=== PATIENT | female | born 2005 | race Caucasian/White ===

== ENCOUNTER 2025-04-26 18:01 | Emergency (ER) | payer SELFPAY ==
[2025-04-27] MEDS ORDERED: CEFP200T13 PO (19:53)
== END 2025-04-26 18:59 | disposition left against medical advice (07) ==
LOC: ER 18:02
DX: R10.9 Unspecified abdominal pain (principal); Z91.040 Latex allergy status; Z88.0 Allergy status to penicillin; Z53.21 Procedure and treatment not carried out due to patient leaving prior to being seen by health care provider

== ENCOUNTER 2025-04-27 18:16 | Emergency (ER) | payer MEDICAID ==
[~2025-04-27] VITALS: Ht 167.6 cm; Wt 60.0 kg
[2025-04-27 18:32] VITALS: TEMP 97.7
[2025-04-27 19:15] LABS: MEAN PLATELET VOLUME 7.7 FL (7.4-10.4); RED CELL DISTRIBUTION WIDTH 13.4 % (11.5-14.5)
[2025-04-27 19:27] LABS: CREATININE 0.60 MG/DL (0.40-0.90); TOTAL CARBON DIOXIDE 30.2 MMOL/L (24-32); eCRCL 139 ML/MIN; eGFR > 90 ML/MIN
--- NOTE | 2025-04-27 19:28 | Physician Documentation ---
History of Present Illness General Chief Complaint: Flank Pain Stated Complaint: R SIDE PAIN Time Seen by MD: 19:28 Mode of Arrival: POV History of Present Illness Initial Comments Patient is a 19-year-old female complains of right flank pain intermittently over last week, the patient was seen in urgent care and at [facility] and urgent care told her she had a urinary tract infection but does not prescribed her any antibiotics. The patient states the pain is sharp and intermittent she has a kidney stone she states this feels little bit different than kidney stones she also has had some urinary symptoms to include frequency. Patient denies any fevers or chills. The patient denies any nausea or vomiting. Medication Reconciliation Allergies: Coded Allergies: amoxicillin (Verified Allergy, Intermediate, Hives, 04/27/25) latex (Verified Allergy, Intermediate, Hives, 04/27/25) Scheduled Cefpodoxime Proxetil (Vantin), 1 TAB PO Q12H Review of Systems All Other Systems at this time: Reviewed and Negative Physical Exam Physical Exam Vital Signs: Temperature: 97.7, Source: Temporal, Heart Rate: 72, Respiratory Rate: 16, BP: 106/68, Pulse Oximetry: 100, Weight: 60.000 Physical Exam VITALS: Reviewed and as above. GENERAL: Alert, no apparent distress. HEENT: Normocephalic, atraumatic, PERRL, EOMI, dry mucosa, no erythema RESPIRATORY: Lungs clear, normal breath sounds, no respiratory distress. CHEST: No accessory muscle use, no retractions CV: Regular rate, rhythm, no edema, no murmur, No: JVD GI: Soft, non-tender, bowels sounds present, no rebound, guarding, or rigidity BACK: No CVA tenderness, or swelling MUSCULOSKELETAL: No deformities, no edema SKIN: Warm and dry, no rash NEURO: Oriented x4, No motor or sensory deficit PSYCH: Normal mood and affect, no agitation Progress Results/Orders Results/Orders Completed Orders - JHON MCBRIDE MD Cephalexin Capsule (Keflex Capsule) (04/27/25 19:50) Vital Signs 04/27/25 04/27/25 04/27/25 04/27/25 18:32 19:23 19:25 20:05 Temp 97.7 Pulse 82 72 77 Resp 18 16 16 15 B/P (MAP) 105/73 106/68 (81) 111/77 Pulse Ox 99 100 100 Laboratory Tests Test 04/27/25 18:40 04/27/25 18:56 Urine Specimen Description Non-specified Urine Color Yellow Urine Clarity Clear Urine pH 7.0 Urine Specific Sunshine <=1.005 Urine Protein Negative Urine Glucose (UA) Negative Urine Ketones Negative Urine Occult Blood Negative Urine Nitrite Negative Urine Bilirubin Negative Urine Urobilinogen 0.2 Urine Leukocyte Esterase Small H Urine RBC None seen Urine WBC 0-4 Urine Squamous Epithelial Cells Few Urine Bacteria 1+ Urine Culture Indicated Indicated Volume Urine Centrifuged 10 ml Urine HCG, Qualitative Negative Urine Comment White Blood Count 5.8 Red Blood Count 4.36 Hemoglobin 13.3 Hematocrit 39.0 Mean Corpuscular Volume 89.4 Mean Corpuscular Hemoglobin 30.5 Mean Corpuscular Hemoglobin Concent 34.1 Red Cell Distribution Width 13.4 Platelet Count 223 Mean Platelet Volume 7.7 Neutrophils (%) (Auto) 63.0 Lymphocytes (%) (Auto) 26.3 Monocytes (%) (Auto) 9.1 Eosinophils (%) (Auto) 1.1 Basophils (%) (Auto) 0.5 Neutrophils # (Auto) 3.6 Lymphocytes # (Auto) 1.5 Monocytes # (Auto) 0.5 Eosinophils # (Auto) 0.1 Basophils # (Auto) 0.0 CBC Comment Sodium Level 139 Potassium Level 3.6 Chloride Level 105 Carbon Dioxide Level 30.2 Anion Gap 4 L Blood Urea Nitrogen 11 Creatinine 0.60 Estimated GFR/1.73 m2 > 90 BUN/Creatinine Ratio 18.3 Glucose Level 74 Calcium Level 8.5 Total Bilirubin 0.3 Aspartate Amino Transf (AST/SGOT) 15 Alanine Aminotransferase (ALT/SGPT) 13 Alkaline Phosphatase 54 Total Protein 7.1 Albumin 3.9 Globulin 3.2 Albumin/Globulin Ratio 1.2 Lipase 35 Chemistry Comments Microbiology Date/Time Source Procedure Growth Status 04/27/25 19:42 Urine Nonspecified Urine Culture - Preliminary Culture received. Resulted Medical Decision Making Additional information obtaine: old records Findings Patient has symptoms consistent with a UTI she may have subclinical pyelonephritis I doubt that she has any kidney stones and as she has not had this type of pain she has had with a kidney spent in the past her urine does look like she has an infection she will be given a dose of Keflex and discharged on a prescription for Vantin for seven days the patient's pulse oximetry was in terpreted as normal and adequate. Differential Diagnosis Urinary tract infection kidney stone musculoskeletal pain Departure Time of Disposition: 19:52 Disposition: 01 HOME / SELF CARE / HOMELESS Impression: Primary Impression: Acute urinary tract infection Discharge Instructions: Urinary Tract Infection, Adult Referrals: NO PRIMARY CARE PROVIDER (PCP) Prescriptions Cefpodoxime Proxetil (Vantin) 200 Mg Tablet 1 TAB PO Q12H for 7 Days, #14 TAB Prov: JHON MCBRIDE MD 04/27/25 Signature Scribe Signature: No scribe Attestation: The note accurately reflects work and decisions made by me.Jhon Mcbride MD 04/28/25 05:18 JHON MCBRIDE MD Apr 27, 2025 19:28
[2025-04-27 19:38] LABS: LEUKOCYTE ESTERASE ,URINE SMALL (Neg); NITRITES, URINE NEGATIVE (Neg); OCCULT BLOOD,URINE NEGATIVE (Neg); URINE HCG NEGATIVE (NEG)
[2025-04-27 19:42] LABS: UA COLLECTION TYPE NON-SPECIFIED
[2025-04-27 19:47] LABS: SQUAMOUS EPITHELIAL CELL,UR FEW /LPF (FEW)
[2025-04-27] MEDS ORDERED: CEFP200T13 PO (19:53)
[2025-04-27 20:05] VITALS: BP 111/77; PULSE 77; RESP 15; O2SAT 100
== END 2025-04-27 20:06 | disposition home or self-care (01) ==
LOC: ER 18:16
DX: N39.0 Urinary tract infection, site not specified (principal); Z88.0 Allergy status to penicillin; Z91.040 Latex allergy status
CPT/HCPCS: 36415; 80053; 81001; 81025; 83690; 85025; 87088; 99283